=== PATIENT | female | born 1990 | race Caucasian/White ===

== ENCOUNTER 2024-04-28 15:43 | Emergency (ER) | payer MEDICAID, OTHER ==
[~2024-04-28] VITALS: Ht 170.2 cm; Wt 63.8 kg
[2024-04-28] MEDS: LORazepam 2MG/ML-1ML VIAL IV ONE (16:19)
[2024-04-28] MEDS: levETIRAcetam 1000 mg/100ml 100 ML IV ONE (16:19)
[2024-04-28] MEDS: SODIUM CHLORIDE 0.9% 500 ML IVB ONE (16:26)
[2024-04-28 16:38] LABS: Basophils # (auto) 0 10 ^3/uL (0-0.2); Basophils % (auto) 0.2 % (0.0-2.0); Eosinophils # (auto) 0 10 ^3/uL (0-0.8); Hematocrit 47.5 % (36.0-46.0); Hemoglobin 16.4 g/dL (12.2-16.2); Lymphocytes # (auto) 1.8 10 ^3/uL (0.4-5.4); Lymphocytes % (auto) 16.7 % (10.0-50.0); Mean Corpuscular Hgb Conc. 34.5 g/dL (32.0-36.0); Mean Corpuscular Volume 92.7 fL (80.0-100.0); Monocytes # (auto) 0.6 10 ^3/uL (0-1.3); Monocytes % (auto) 5.6 % (0.0-12.0); Neutrophils # (auto) 8.4 10 ^3/uL (1.6-8.6); Neutrophils % (auto) 77.5 % (37.0-80.0); Platelet Count (auto) 393 10^3/uL (140-450); Red Blood Cells 5.12 10^6/uL (4.0-5.20); Red Cell Distribution Width 13.3 % (11.8-14.3); White Blood Cell 10.9 10^3/uL (4.4-10.8)
[2024-04-28 16:55] LABS: Alanine Aminotransferase 18 U/L (7-40); Albumin 5.1 g/dL (3.2-4.8); Alkaline Phosphatase 67 U/L (46-116); Anion Gap 8 (5-15); Aspartate Aminotransferase 55 U/L (13-40); BUN/Creatinine Ratio 11.4 (10.0-20.0); Bilirubin, Total 0.4 mg/dL (0.2-1.0); Blood Urea Nitrogen 9 mg/dL (9-23); Calcium 10.3 mg/dL (8.7-10.4); Carbon Dioxide 29 mmol/L (20-30); Chloride 105 mmol/L (98-107); Glucose 141 mg/dL (74-106); Magnesium 2.2 mg/dL (1.6-2.6); Potassium 3.6 mmol/L (3.5-5.1); Sodium 142 mmol/L (136-145); Total Protein 7.8 g/dL (5.7-8.2)
[2024-04-28] MEDS: SODIUM CHLORIDE 0.9% 1,000 ML IV ONE (16:58)
[2024-04-28 17:31] VITALS: BP 128/81; PULSE 89; RESP 20; TEMP 98.2; O2SAT 94
== END 2024-04-28 17:52 | disposition home or self-care (01) ==
LOC: EDBD 15:43 → ER 15:43
DX: G40.909 Epilepsy, unspecified, not intractable, without status epilepticus (principal); R10.2 Pelvic and perineal pain; R51.9 Headache, unspecified; Z79.899 Other long term (current) drug therapy
CPT/HCPCS: 36415; 71045; 80053; 83735; 84702; 85025; 93005; 96365; 96375; 99285; J1953; J2060; J7030; J7040